=== PATIENT | male | born 1980 | race Caucasian/White ===

== ENCOUNTER 2017-10-19 17:30 | Emergency (ER) | payer OTHER ==
[~2017-10-19] VITALS: Ht 190.5 cm; Wt 142.9 kg
[2017-10-19] MEDS ORDERED: SINGULAIR4 M1 (17:51)
[2017-10-19] MEDS ORDERED: ALBUTEROL0.63 MG/3 (17:51)
[2017-10-19] MEDS ORDERED: PROVENTIL HFA6.7 GM (17:52)
== END 2017-10-19 18:42 | disposition home or self-care (01) ==
LOC: ER 17:30
DX: R06.02 Shortness of breath (principal)